=== PATIENT | female | born 1945 | race Caucasian/White ===

== ENCOUNTER 2022-02-07 13:15 | Outpatient (CLI) | payer MEDICARE, SELFPAY ==
[2022-02-07 21:15] LABS: Albumin* 4.5 g/dL (3.3-5.0); Chloride* 103 mmol/L (96-114)
[2022-02-07 21:16] LABS: Potassium* 3.8 mmol/L (3.6-5.1); Sodium* 138 mmol/L (135-149)
[2022-02-07 21:17] LABS: Cholesterol* 213 mg/dL (90-199)
[2022-02-07 21:18] LABS: Alkaline Phosphatase* 78 U/L (40-150); Aspartate Amino Transferase* 24 U/L (12-35); Bilirubin Total* 0.7 mg/dL (0.1-1.5); Blood Urea Nitrogen* 18 mg/dL (7-30); Carbon Dioxide* 26 mmol/L (20-32); Creatinine* 0.6 mg/dL (0.5-1.5); Estimated Glomerular Filt Rate 92 ml/min; Glucose* 94 mg/dL (60-115); Total Protein* 7.1 g/dL (6.0-8.3)
[2022-02-07 21:19] LABS: Alanine Aminotransferase* 13 U/L (4-35); Calcium* 9.1 mg/dL (8.4-10.6); HDL Cholesterol* 81 mg/dL (>=50); LDL Cholesterol Calculated 118 mg/dL (<100); Triglycerides* 68 mg/dL (40-149)
== END 2022-02-07 13:16 | disposition home or self-care (01) ==
PROVIDERS: PCP Emergency Medicine; Visit Provider Emergency Medicine
DX: Z00.00 Encounter for general adult medical examination without abnormal findings (principal); R03.0 Elevated blood-pressure reading, without diagnosis of hypertension; D69.6 Thrombocytopenia, unspecified; Z13.6 Encounter for screening for cardiovascular disorders
CPT/HCPCS: 80053; 80061

== ENCOUNTER 2022-03-13 13:58 | Outpatient (CLI) | payer MEDICARE, SELFPAY ==
[2022-03-13 22:02] LABS: Albumin* 4.6 g/dL (3.3-5.0)
[2022-03-13 22:05] LABS: Alkaline Phosphatase* 78 U/L (40-150); Aspartate Amino Transferase* 24 U/L (12-35); Bilirubin Direct* 0.2 mg/dL (0.0-0.5); Bilirubin Total* 0.5 mg/dL (0.1-1.5); Total Protein* 6.9 g/dL (6.0-8.3)
[2022-03-13 22:06] LABS: Alanine Aminotransferase* 11 U/L (4-35)
[2022-03-13 22:41] LABS: Hepatitis C Virus Antibody* Negative (Negative)
== END 2022-03-13 13:59 | disposition home or self-care (01) ==
PROVIDERS: PCP Emergency Medicine; Visit Provider Emergency Medicine
DX: D69.6 Thrombocytopenia, unspecified (principal); R53.83 Other fatigue; E03.9 Hypothyroidism, unspecified; R03.0 Elevated blood-pressure reading, without diagnosis of hypertension
CPT/HCPCS: 80076; 84443; 86803